=== PATIENT | female | born 1945 | race Caucasian/White ===

== ENCOUNTER → 2021-11-02 | Day surgery (SDC) | payer MEDICARE, OTHER ==
[~2021-11-02] VITALS: Ht 175.3 cm; Wt 88.9 kg
[~2021-11-02] MED LIST: CYANOCOBAL1000 MCG/1 IJ; VITAMIN D21250 MCG PO
[2021-11-02 09:04] LABS: HCT 40.9 % (37.0-47.0); HGB 13.8 g/dl (12.5-16.0); MCH 31.8 pg (25.0-31.0); MCHC 33.7 g/dL (32.0-36.0); MCV 94.2 fL (78.0-100.0); MPV 9.9 fL (6.0-9.5); RBC 4.34 M/uL (4.20-5.40); RDW 13.8 % (11.5-14.0)
[2021-11-02 09:52] LABS: ALBUMIN 3.7 g/dL (3.4-5.0); BILIRUBIN - TOTAL 1.7 mg/dL (0.2-1.0); BUN/CREAT RATIO (CALC) 11.4 RATIO; CREATININE 1.05 mg/dL (0.51-0.95); GLOBULIN (CALCULATION) 3.4 g/dL; POTASSIUM 3.6 mmol/L (3.5-5.1); TOTAL PROTEIN 7.1 g/dL (6.4-8.2)
== END | disposition home or self-care (01) ==
LOC: FAS 08:33
PROVIDERS: Surgery
DX: K58.9 Irritable bowel syndrome, unspecified (principal); Z88.2 Allergy status to sulfonamides; Z90.49 Acquired absence of other specified parts of digestive tract
CPT/HCPCS: 36415; 80053; J1610; J2704; J7120